=== PATIENT | female | born 1940 | race Caucasian/White ===

== ENCOUNTER 2016-06-18 12:54 | Outpatient (CLI) | payer MEDICARE, OTHER | END 2016-06-18 12:55 | disposition home or self-care (01) | DX: M25.561 Pain in right knee (principal); S83.511A Sprain of anterior cruciate ligament of right knee, initial encounter; M22.41 Chondromalacia patellae, right knee; M21.861 Other specified acquired deformities of right lower leg; M71.21 Synovial cyst of popliteal space [Baker], right knee; M25.461 Effusion, right knee; M23.251 Derangement of posterior horn of lateral meniscus due to old tear or injury, right knee ==

== ENCOUNTER 2016-08-08 13:16 | Outpatient (CLI) | payer MEDICARE, OTHER | END 2016-08-08 13:17 | disposition home or self-care (01) | DX: R19.7 Diarrhea, unspecified (principal) ==

== ENCOUNTER 2019-04-16 10:52 | Outpatient (CLI) | payer MEDICARE, OTHER ==
[2019-04-16] MEDS: BARIUM SULFATE 176 GM BOTTLE PO ONE (12:35)
[2019-04-16] MEDS: BARIUM SULFATE 148 GM POWDER PO ONE (12:36)
[2019-04-16] MEDS: BARIUM SULFATE 700 MG TABLET PO ONE (12:37)
[2019-04-16] MEDS: SIMETHICONE/SOD BICARB/CIT AC 1 EACH PACKET PO ONE (12:38)
--- NOTE | 2019-04-16 15:55 | XRAY Report ---
Reason: DYSPHAGIA Procedure Date: 04/16/2019 Accession Number: [id number] / [id number] Procedure: FL - Esophogram CPT Code: Final Report FULL RESULT: EXAM: BARIUM ESOPHAGRAM EXAM DATE: 04/16/2019 12:17 PM. CLINICAL HISTORY: Dysphagia. COMPARISONS: None. TECHNIQUE: Routine double contrast esophagram. Fluoroscopy Time: 2 minutes and 20 seconds. Number of Images: 27. FINDINGS: Swallowing Mechanism: The swallowing mechanism is initiated normally. The column of barium flows through the esophagus into the stomach without delay. No tracheal aspiration or penetration. Esophageal Motility: Normal peristaltic stripping wave. Mucosa: Mildly prominent cricopharyngeus. No ulcerations or masses. Gastroesophageal Junction: Small hiatal hernia. Moderate spontaneous gastroesophageal reflux. No esophageal stricture or mass lesion. IMPRESSION: 1. Small sliding hiatal hernia and spontaneous gastroesophageal reflux. 2. Mildly prominent cricopharyngeus. 3. No stricture or mass lesion. RADIA
== END 2019-04-16 10:53 | disposition home or self-care (01) ==
LOC: DI 10:52
PROVIDERS: ATTEND Internal Medicine
DX: K21.9 Gastro-esophageal reflux disease without esophagitis (principal); K44.9 Diaphragmatic hernia without obstruction or gangrene; R13.12 Dysphagia, oropharyngeal phase; R13.10 Dysphagia, unspecified
CPT/HCPCS: 74220; A9270

== ENCOUNTER 2019-07-23 15:59 | Outpatient (CLI) | payer MEDICARE, OTHER ==
--- NOTE | 2019-07-24 10:54 | Mammography Report ---
Reason: ROUTINE MAMMO Procedure Date: 07/23/2019 Accession Number: [id number] / [id number] Procedure: FARHANA - Screening Mammo w/Alec CPT Code: Final Report FULL RESULT: EXAM: Screening Mammo w/Alec DATE: 07/23/2019 4:35 PM CLINICAL HISTORY: History of nulliparity. Screening encounter. New baseline screening. TECHNIQUE: (B) - Bilateral CC and MLO views were obtained. COMPARISON: None PARENCHYMAL PATTERN: (D) - The breast(s) demonstrate(s) heterogeneously dense fibroglandular parenchyma. FINDINGS: In the right breast within the breast cone region in the upper central breast are 3 nodules which are isodense, partially obscured and tomographically well circumscribed with suggestion of fatty hilar, potentially lymph nodes. Each of these nodules measures less than 1 cm in short axis and has a ovoid shape. 12:00 approximately 3 cm from the nipple MLO image 29 and cc image 20. 1:00 position 1.8 cm from the nipple MLO image 39 and cc image 27. 1:00 position 4 cm from the nipple MLO image 39 and cc image 32. These 3 nodules should be fully characterized by focused right breast ultrasound. In the left breast best seen on CC projection at the 12:00 position is a architectural distortion CC image 40, possible associated calcification MLO image 42, this should be further characterized with spot magnification views and ultrasound. IMPRESSION: Incomplete examination. BI-RADS category 0. RECOMMENDATION: (ADDMU) - Additional views using both Mammography and Ultrasound recommended. Focused right breast ultrasound and left breast spot magnification views as well as ultrasound. BI-RADS CATEGORY: (0) - Incomplete Examination - need additional evaluation. STANDARD QUALIFYING STATEMENTS: 1. This examination was not reviewed with the aid of Computer-Aided Detection (CAD). 2. A negative or benign imaging report should not preclude biopsy if clinically suspicious findings are present. 3. Dense breasts may obscure an underlying neoplasm. 4. This examination was reviewed with the aid of 3D breast imaging (tomosynthesis).
== END 2019-07-23 16:00 | disposition home or self-care (01) ==
LOC: DI 15:59
PROVIDERS: ATTEND Internal Medicine
DX: Z12.31 Encounter for screening mammogram for malignant neoplasm of breast (principal); R92.8 Other abnormal and inconclusive findings on diagnostic imaging of breast
CPT/HCPCS: 77063; 77067

== ENCOUNTER 2019-08-12 12:56 | Outpatient (CLI) | payer MEDICARE, OTHER ==
--- NOTE | 2019-08-12 14:30 | Mammography Report ---
Reason: ABNORMAL MAMMOGRAM Procedure Date: 08/12/2019 Accession Number: [id number] / [id number] Procedure: FARHANA - Diag Special Views Dig Bilat CPT Code: Final Report FULL RESULT: EXAM: Diag Special Views Dig Bilat DATE: 08/12/2019 1:50 PM CLINICAL HISTORY: Diagnostic examination. The patient is recalled from screening mammography for right breast nodules as well as a left breast architectural distortion. TECHNIQUE: (B) - Bilateral right breast spot CC, right breast spot MLO, right breast ML and left breast spot magnified CC, left ML images are obtained. Bilateral focused breast ultrasound is performed. COMPARISON: 07/23/2019. PARENCHYMAL PATTERN: (D) - The breast(s) demonstrate(s) heterogeneously dense fibroglandular parenchyma. FINDINGS: Right breast: The right breast 12:00 axis nodule essentially unchanged 3 cm from the nipple on ML tomographic image 21. And corresponds to a sonographic wider than tall 0.5 x 0.6 cm hypoechoic finding with lobulated margins and no convincing vascularity by color Doppler, probably benign. In the retroareolar right breast 2 cm from the nipple, 8-9 o'clock axis persists a somewhat wider than tall hypoechoic 0.5 cm nodule which is also probably benign. No sonographic correlate is identified to the mammographically redemonstrated 1:00 axis isodense well-circumscribed nodule 4 cm from the nipple which mammographically is now seen on MLO image 28 and measures up to 0.7 cm, probably benign. There are no suspicious masses, calcifications, or areas of distortion. IMPRESSION: Probably Benign. BI-RADS category 3. RECOMMENDATION: (6MOS) - Recommend 6 month follow-up exam. Bilateral mammography with ultrasound. BI-RADS CATEGORY: (3) - Probably Benign. Left breast: The previously seen architectural distortion partially persists on the left ML image 34 and is redemonstrated on spot views in CC projection, suspicious. Focused left breast ultrasound reveals no convincing corresponding sonographic mass or distortion amenable to biopsy targeting. IMPRESSION: Suspicious findings. BI-RADS category 4. RECOMMENDATION: (BIOPSY) - Stereotactic biopsy with tomography BI-RADS CATEGORY: (4) - Suspicious. STANDARD QUALIFYING STATEMENTS: 1. This examination was not reviewed with the aid of Computer-Aided Detection (CAD). 2. A negative or benign imaging report should not preclude biopsy if clinically suspicious findings are present. 3. Dense breasts may obscure an underlying neoplasm. 4. This examination was reviewed with the aid of 3D breast imaging (tomosynthesis).
== END 2019-08-12 12:57 | disposition home or self-care (01) ==
LOC: DI 12:56
PROVIDERS: ATTEND Internal Medicine
DX: R92.8 Other abnormal and inconclusive findings on diagnostic imaging of breast (principal)
CPT/HCPCS: 76642; 77066

== ENCOUNTER 2019-09-11 14:58 | Outpatient (CLI) | payer MEDICARE, OTHER ==
[~2019-09-11 14:58] MED LIST: BUFFERED LIDOCAINE 10 ML SYRINGE ONE
--- NOTE | 2019-09-11 17:07 | Mammography Report ---
Reason: ABNORMAL MAMMOGRAM Procedure Date: 09/11/2019 Accession Number: [id number] / [id number] Procedure: FARHANA - Stereotactic Core BX LT CPT Code: 28551 Final Report FULL RESULT: EXAM: Stereotactic Core BX LT DATE: 09/11/2019 4:47 PM CLINICAL HISTORY: ABNORMAL MAMMOGRAM COMPARISON: None. CLINICAL DATA: Target architectural distortion measuring approximately 2 cm in the 12 o'clock axis of the left breast. Informed consent was obtained. The patient was positioned in the mammography machine with biopsy attachment. Targeting imaging was obtained in 2-D and 3-D fashion and the lesion was selected. The breast was approached from the cranial aspect. Using standard aseptic technique, 1% buffered lidocaine was injected into the breasts for local anesthesia. A small beronica was made in the skin with a #11 blade. A 9-gauge vacuum-assisted device was advanced into the breasts towards the target and confirmatory imaging was obtained to verify targeting and 16 specimens were obtained. Specimen radiography was performed which demonstrated the presence of calcifications in the sample. A biopsy marker clip was then placed into the biopsy cavity. The biopsy device was subsequently removed from the breast. Hemostasis was achieved. Follow-up 3-D mammography was then performed to verify biopsy targeting and clip placement. The mammography showed concordant clip positioning . The wound was dressed and ice applied. The patient was observed for approximately 15 minutes, then discharged from the diagnostic imaging Department in stable condition following instructions on wound care and obtaining biopsy results. The tissue was sent for histologic analysis. IMPRESSION: Stereotactic biopsy with tomographic targeting of architectural distortion of the left breast. RADIA
[2019-09-11] MEDS ORDERED: BUFFERED LIDOCAINE 10 ML SYRINGE IU ONE (17:11)
== END 2019-09-11 14:59 | disposition home or self-care (01) ==
LOC: DI 14:58
PROVIDERS: ATTEND Internal Medicine
DX: R92.8 Other abnormal and inconclusive findings on diagnostic imaging of breast (principal)
CPT/HCPCS: 19081

== ENCOUNTER 2020-07-31 10:00 | Outpatient (CLI) | payer MEDICARE, OTHER ==
--- NOTE | 2020-08-03 12:40 | Mammography Report ---
BILATERAL DIGITAL SCREENING MAMMOGRAM 3D/2D: 07/31/2020 CLINICAL: Routine screening. Comparison is made to exams dated: 08/12/2019 ultrasound, 08/12/2019 ultrasound, and 07/23/2019 mammogr formerly [facility]. There are scattered fibroglandular elements in both breasts. No significant masses, calcifications, or other findings are seen in either breast. There has been no significant interval change. IMPRESSION: NEGATIVE There is no mammographic evidence of malignancy. A 1 year screening mammogram is recommended. This exam was interpreted at Station ID: [id number]. NOTE: For mammograms, a report in lay terms will be sent to the patient. Approximately 15% of breast malignancies will not be visualized mammographically. In the management of a palpable breast mass, a negative mammogram must not discourage biopsy of a clinically suspicious lesion. Electronically Signed By: Armond Roman M.D., jr/ericarad:07/31/2020 10:56:00 ACR BI-RADS Category 1: Negative 3341F PARENCHYMAL PATTERN: (A) - The breast(s) demonstrate(s) scattered fibroglandular densities. BI-RADS CATEGORY: (1) - 1 RECOMMENDATION: (ANNUAL) - Recommend routine annual screening mammography. [id number] 1 year screening LATERALITY: (B)
== END 2020-07-31 10:01 | disposition home or self-care (01) ==
LOC: DI 10:00
PROVIDERS: ATTEND Internal Medicine
DX: Z12.31 Encounter for screening mammogram for malignant neoplasm of breast (principal)

== ENCOUNTER 2021-05-03 08:00 | Outpatient (CLI) | payer MEDICARE, OTHER | END 2021-05-03 23:59 | LOC: LAB 08:00 | PROVIDERS: ATTEND Internal Medicine | DX: R39.9 Unspecified symptoms and signs involving the genitourinary system (principal) | CPT/HCPCS: 87077; 87086; 87181 ==

== ENCOUNTER 2021-07-29 08:00 | Outpatient (CLI) | payer MEDICARE, OTHER ==
[2021-07-29 16:00] LABS: ALBUMIN 3.9 g/dL (3.2-5.5); ALKALINE PHOSPHATASE 95 IU/L (42-121); ALT ALANINE AMINOTRANSFERASE 26 IU/L (10-60); AST ASPARTATE AMINOTRANSFERASE 28 IU/L (10-42); BILIRUBIN,TOTAL 0.6 mg/dL (0.2-1.0); BUN - BLOOD UREA NITROGEN 24 mg/dL (6-20); CALCIUM 9.6 mg/dL (8.5-10.3); CARBON DIOXIDE - CO2 28 mmol/L (21-32); CHLORIDE 92 mmol/L (101-111); CREATININE 1.3 mg/dL (0.4-1.0); GFR - MDRD 40 (>89); GLUCOSE 96 mg/dL (70-100); POTASSIUM 3.7 mmol/L (3.5-5.0); SODIUM 131 mmol/L (135-145); TOTAL PROTEIN 7.8 g/dL (6.7-8.2)
[2021-07-30 11:45] LABS: BASOPHILS % (AUTO) 0.3 %; EOSINOPHILS # (AUTO) 0.1 10^3/uL (0.0-0.7); EOSINOPHILS % (AUTO) 0.6 %; HCT - HEMATOCRIT 37.4 % (37.0-47.0); LYMPHOCYTES # (AUTO) 3.1 10^3/uL (1.5-3.5); LYMPHOCYTES % (AUTO) 24.3 %; MEAN CORPUSCULAR HEMOGLOBIN 30.4 pg (27.0-31.0); MEAN CORPUSCULAR HGB CONC 32.1 g/dL (32.0-36.0); MEAN CORPUSCULAR VOLUME 94.7 fL (81.0-99.0); MEAN PLATELET VOLUME 9.8 fL (7.9-10.8); MONOCYTES # (AUTO) 0.9 10^3/uL (0.0-1.0); MONOCYTES % (AUTO) 7.2 %; NEUTROPHILS # (AUTO) 8.6 10^3/uL (1.5-6.6); NEUTROPHILS % (AUTO) 67.3 %; PLT - PLATELET COUNT 483 10^3/uL (130-450); RED BLOOD COUNT 3.95 10^6/uL (4.20-5.40); RED CELL DISTRIBUTION WIDTH 13.5 % (12.0-15.0); WHITE BLOOD COUNT 12.8 x10^3/uL (4.8-10.8)
[2021-07-30 12:01] LABS: CHOL/HDL RATIO 4.1 (<4.4); CHOLESTEROL 248 mg/dL; HDL CHOLESTEROL 61 mg/dL; LDL CHOLESTEROL,CALCULATED 159 mg/dL; LDL/HDL RATIO 2.6 (<4.4); TRIGLYCERIDES 139 mg/dL; VLDL CHOLESTEROL 28 mg/dL
[2021-07-30 12:11] LABS: THYROID STIMULATING HORMONE 1.03 uIU/mL (0.34-5.60)
== END 2021-07-29 23:59 ==
LOC: LAB.R 08:00
PROVIDERS: ATTEND Internal Medicine
DX: Z00.00 Encounter for general adult medical examination without abnormal findings (principal); Z79.899 Other long term (current) drug therapy; F41.9 Anxiety disorder, unspecified; K21.9 Gastro-esophageal reflux disease without esophagitis; E78.5 Hyperlipidemia, unspecified; I10 Essential (primary) hypertension; E03.9 Hypothyroidism, unspecified; G47.00 Insomnia, unspecified; G43.909 Migraine, unspecified, not intractable, without status migrainosus; M19.90 Unspecified osteoarthritis, unspecified site; M48.00 Spinal stenosis, site unspecified; Z13.6 Encounter for screening for cardiovascular disorders
CPT/HCPCS: 80053; 80061; 82306; 82607; 83721; 84443; 85025

== ENCOUNTER 2021-08-19 13:26 | Outpatient (CLI) | payer MEDICARE, OTHER ==
[2021-08-19 13:56] LABS: BASOPHILS % (AUTO) 0.5 %; EOSINOPHILS # (AUTO) 0.1 10^3/uL (0.0-0.7); EOSINOPHILS % (AUTO) 0.8 %; HCT - HEMATOCRIT 33.6 % (37.0-47.0); HGB - HEMOGLOBIN 10.6 g/dL (12.0-16.0); LYMPHOCYTES # (AUTO) 2.4 10^3/uL (1.5-3.5); LYMPHOCYTES % (AUTO) 27.9 %; MEAN CORPUSCULAR HEMOGLOBIN 28.9 pg (27.0-31.0); MEAN CORPUSCULAR HGB CONC 31.5 g/dL (32.0-36.0); MEAN CORPUSCULAR VOLUME 91.6 fL (81.0-99.0); MEAN PLATELET VOLUME 8.3 fL (7.9-10.8); MONOCYTES # (AUTO) 0.8 10^3/uL (0.0-1.0); MONOCYTES % (AUTO) 9.3 %; NEUTROPHILS # (AUTO) 5.2 10^3/uL (1.5-6.6); NEUTROPHILS % (AUTO) 61.1 %; PLT - PLATELET COUNT 456 10^3/uL (130-450); RED BLOOD COUNT 3.67 10^6/uL (4.20-5.40); RED CELL DISTRIBUTION WIDTH 13.9 % (12.0-15.0); WHITE BLOOD COUNT 8.5 x10^3/uL (4.8-10.8)
[2021-08-19 14:05] LABS: CALCIUM 8.8 mg/dL (8.5-10.3); CREATININE 1.1 mg/dL (0.4-1.0)
== END 2021-08-19 13:27 | disposition home or self-care (01) ==
LOC: RT 13:26
PROVIDERS: ATTEND Orthopaedic Surgery Orthopaedic Surgery of the Spine
DX: Z01.818 Encounter for other preprocedural examination (principal)
CPT/HCPCS: 36415; 80048; 85025; 93005

== ENCOUNTER 2023-04-13 12:50 | Outpatient (CLI) | payer MEDICARE, OTHER ==
--- NOTE | 2023-04-13 16:56 | Mammography Report ---
BILATERAL DIGITAL SCREENING MAMMOGRAM 3D/2D: 04/13/2023 CLINICAL: Routine screening. Comparison is made to exams dated: 07/31/2020 mammogram, 07/23/2019 mammogram, and 09/11/2019 stereotac tic biopsy - [facility]. There are scattered areas of fibroglandular density in both breasts (category b / 25%-50% glandular t issue). There is a biopsy clip in the left breast. No significant masses, calcifications, or other findings are seen in either breast. There has been no significant interval change. IMPRESSION: NEGATIVE There is no mammographic evidence of malignancy. A 1 year screening mammogram is recommended. *Please note, prior biopsy result reported radial scar, which is a benign, but high-risk lesion. Clin ical followup recommended for discussion regarding continued followup vs. surgical excision. This area of distortion is stable on imaging. Based on the Tyrer Cuzick model (a risk assessment model) the patients lifetime risk is 0.7% and her 10 year risk is 0.0%. According to the ACR, ACS, and NCCN guidelines, an annual breast MRI exam lora g with mammogram is recommended if the patients lifetime risk is 20% or greater. This exam was interpreted at Station ID: [id number]. NOTE: For mammograms, a report in lay terms will be sent to the patient. Approximately 15% of breast malignancies will not be visualized mammographically. In the management of a palpable breast mass, a negative mammogram must not discourage biopsy of a clinically suspicious lesion. Electronically Signed By: Mata Andrade M.D. lc/:04/13/2023 15:33:30 letter sent: No_Letter ACR BI-RADS Category 1: Negative 3341F PARENCHYMAL PATTERN: (A) - The breast(s) demonstrate(s) scattered fibroglandular densities. BI-RADS CATEGORY: (1) - 1 Mammogram [id number] 1 year screening LATERALITY: (B)
== END 2023-04-13 12:51 | disposition home or self-care (01) ==
LOC: DI 12:50
PROVIDERS: ATTEND Internal Medicine
DX: Z12.31 Encounter for screening mammogram for malignant neoplasm of breast (principal); R92.323 Mammographic fibroglandular density, bilateral breasts; L90.5 Scar conditions and fibrosis of skin

== ENCOUNTER 2023-05-18 10:54 | Outpatient (CLI) | payer MEDICARE, OTHER ==
[2023-05-18] MEDS ORDERED: DIATRIZOATE MEGLU/DIATRIZO SOD 30 ML BOTTLE PO ONE ×2 (11:21→13:01)
[2023-05-18 11:31] LABS: CREATININE 1.1 mg/dL (0.6-1.3)
[2023-05-18] MEDS ORDERED: iohexoL-300 100 ML VIAL IVP ONE (13:01)
--- NOTE | 2023-05-18 15:53 | CT Report ---
PROCEDURE: Chest W INDICATIONS: ABDOMINAL PAIN, TACHYCARDIA. Left lower quadrant pain x2 weeks. CONTRAST: 100ml omni 300 TECHNIQUE: After the administration of intravenous contrast, a CT scan of the chest was performed. Images were recorded and evaluated at appropriate window settings. Reformats: axial MIP of the chest, coronal and sagittal. For radiation dose reduction, the following was used: automated exposure control, adjustme nt of mA and/or kV according to patient size. COMPARISON: CT abdomen and pelvis from the same date FINDINGS: Image quality: Excellent. Lungs and pleura: No consolidation. Tree-in-bud nodularity, focally in the left lung base, images 211 and 212 of series 3, consistent with chronic inflammation or infection. . No pleural effusions. No pneumothorax. Pulmonary nodules are as follows (all described on series 3): 1. 3 mm right upper lobe pulmonary nodule, image 68. Mediastinum: Heart size is normal. No pericardial effusion. No large vessel abnormality. No mediastin al adenopathy by size criteria. Chest wall and lower neck: Thyroid is unremarkable. No axillary or supraclavicular adenopathy by size . Bones: No aggressive osseous abnormality. Upper Abdomen: The upper portion of a left staghorn calculus is noted on the chest CT images. Looking at the abdomen and pelvis in its entirety, there is a large staghorn calculus of the left collecting system. There is marked chronic hydronephrosis with thin remnant cortical tissue remaining, as well as lower pole calyceal nonobstructing stones. The left ureter is dilated proximally with a thickened enhancing wall, consistent with chronic ureteritis. IMPRESSION: 1. No acute pulmonary process. 2. 3 mm pulmonary nodule, right upper lobe. 3. Minimal tree-in-bud opacity on the left, consistent with chronic inflammation or infection. 4. Left renal staghorn calculus with obstruction and marked hydronephrosis. The proximal ureter is di lated with a thickened enhancing wall. Findings are highly suspicious for ureteritis an infected, obs tructed collecting system, potentially placing the patient at high risk for urosepsis. Comment: Recommend urgent evaluation for possible obstructed infected left collecting system. Additional Comment: As per the Fleischner Society criteria,If the patient is at low risk for lung can cer, no further follow-up is required. If the patient has risk factors for lung cancer, repeat evalua tion with a low-dose noncontrast chest CT may be obtained in 12 months time. If the nodule is stable at that point, no further follow-up is required. Above discussed with Chelsi Meredith MD at the time of dictation on 05/18/2023 at 1540 hours. Reviewed by: Claudio Yoon MD on 05/18/2023 3:52 PM PST Approved by: Claudio Yoon MD on 05/18/2023 3:52 PM PST Station ID: [id number]
--- NOTE | 2023-05-18 15:58 | CT Report ---
PROCEDURE: Abdomen/Pelvis W INDICATIONS: ABDOMINAL PAIN, TACHYCARDIA CONTRAST: 100ml omni 300 TECHNIQUE: After the administration of intravenous contrast, a CT scan of the abdomen and pelvis was performed. Images were recorded and evaluated at appropriate window settings. Reformats: coronal and sagittal. F or radiation dose reduction, the following was used: automated exposure control, adjustment of mA and /or kV according to patient size. COMPARISON: CT chest from the same date. FINDINGS: Image quality: Excellent. Lung bases and heart: Unremarkable. Liver: No solid mass. Gallbladder and biliary tree: There is either dependent gravel or milk of calcium in the dependent po rtion of the gallbladder. No significant gallbladder wall thickening. Spleen: No splenomegaly. Pancreas: No pancreatic ductal dilation. Adrenals: No adrenal nodule. Kidneys and ureters: There is a left staghorn calculus. There is marked chronic left hydronephrosis w ith significant cortical thinning. Inferior to the staghorn calculus, the proximal left ureter is dil ated with a thickened, enhancing wall. Findings are suspicious for possible ureteritis and obstructed infected collecting system. Bowel and peritoneum: No bowel distension. No pathologic free fluid. Large diffuse fecal load. Lymph nodes: Shotty periaortic lymph nodes, none of which are abnormal by size criteria. Vessels: No infrarenal aortic aneurysm. PELVIS Reproductive organs: Uterus is surgically absent.. Bladder: No abnormal wall thickening, accounting for underdistention. Pelvic lymph nodes: No pelvic adenopathy by size criteria. Bones: No aggressive osseous abnormality. Other: No significant ventral or inguinal hernia. IMPRESSION: 1. Left renal staghorn calculus with obstruction and marked hydronephrosis. The proximal ureter is di lated with a thickened enhancing wall. Findings are highly suspicious for ureteritis an infected, obs tructed collecting system, potentially placing the patient at high risk for urosepsis. 2. Diffuse large fecal load incidentally noted. 3. Question gallbladder gravel. Comment: Recommend urgent evaluation for possible obstructed infected left collecting system. Above discussed with Chelsi Meredith MD at the time of dictation on 05/18/2023 at 1540 hours. Reviewed by: Claudio Yoon MD on 05/18/2023 3:57 PM PST Approved by: Claudio Yoon MD on 05/18/2023 3:57 PM PST Station ID: [id number]
== END 2023-05-18 10:55 | disposition home or self-care (01) ==
LOC: LAB 10:54
PROVIDERS: ATTEND Internal Medicine
DX: R10.9 Unspecified abdominal pain (principal); R00.0 Tachycardia, unspecified; Z79.899 Other long term (current) drug therapy; N13.2 Hydronephrosis with renal and ureteral calculous obstruction; R91.1 Solitary pulmonary nodule; R91.8 Other nonspecific abnormal finding of lung field; R93.89 Abnormal findings on diagnostic imaging of other specified body structures
CPT/HCPCS: 36415; 71260; 74177; 82565; Q9963; Q9967

== ENCOUNTER 2023-05-24 08:00 | Outpatient (CLI) | payer MEDICARE, OTHER | END 2023-05-24 23:59 | disposition home or self-care (01) | LOC: LAB 08:00 | PROVIDERS: ATTEND Urology | DX: N28.82 Megaloureter (principal); N11.8 Other chronic tubulo-interstitial nephritis | CPT/HCPCS: 87086 ==

== ENCOUNTER 2023-07-20 13:34 | Outpatient (CLI) | payer MEDICARE, OTHER ==
[2023-07-20 13:55] LABS: BASOPHILS # (AUTO) 0.1 10^3/uL (0.0-0.1); EOSINOPHILS # (AUTO) 0.5 10^3/uL (0.0-0.7); EOSINOPHILS % (AUTO) 7.5 %; HCT - HEMATOCRIT 35.1 % (37.0-47.0); HGB - HEMOGLOBIN 10.8 g/dL (12.0-16.0); LYMPHOCYTES # (AUTO) 2.4 10^3/uL (1.5-3.5); LYMPHOCYTES % (AUTO) 34.7 %; MEAN CORPUSCULAR HEMOGLOBIN 28.6 pg (27.0-31.0); MEAN CORPUSCULAR HGB CONC 30.8 g/dL (32.0-36.0); MEAN CORPUSCULAR VOLUME 92.9 fL (81.0-99.0); MONOCYTES # (AUTO) 0.7 10^3/uL (0.0-1.0); MONOCYTES % (AUTO) 9.4 %; NEUTROPHILS # (AUTO) 3.3 10^3/uL (1.5-6.6); NEUTROPHILS % (AUTO) 47.3 %; PLT - PLATELET COUNT 391 10^3/uL (130-450); RED BLOOD COUNT 3.78 10^6/uL (4.20-5.40); RED CELL DISTRIBUTION WIDTH 19.4 % (12.0-15.0); WHITE BLOOD COUNT 6.9 x10^3/uL (4.8-10.8)
== END 2023-07-20 13:35 | disposition home or self-care (01) ==
LOC: LAB 13:34
PROVIDERS: ATTEND Nurse Practitioner
DX: D64.9 Anemia, unspecified (principal)
CPT/HCPCS: 36415; 85025

== ENCOUNTER 2023-09-25 14:13 | Outpatient (CLI) | payer MEDICARE, OTHER ==
--- NOTE | 2023-09-25 22:57 | DEXA Report ---
PROCEDURE: Dexa Spine and/or Hip INDICATIONS: POST MENOPAUSAL TECHNIQUE: Dual energy x-ray absorptiometry (DEXA) was performed in the regions detailed below. COMPARISON: None. FINDINGS: Lumbar Spine: Bone Mineral Density 1.0184 g/cm/cm,T score 0.2. Normal Left Femoral Neck: Bone Mineral Density 0.852 g/cm/cm, T score -1.3. Osteopenia Left Total Hip: Bone Mineral Density 0.867 g/cm/cm,T score -1.1. Osteopenia (T score greater or equal to -1.0: NORMAL) (T score from -1.1 to -2.4: OSTEOPENIA) (T score less than or equal to -2.5 to: OSTEOPOROSIS) IMPRESSION: Osteopenia Patients with diagnosis of osteoporosis or osteopenia should have regular bone mineral density assess ment. For those eligible for Medicare, routine testing is allowed once every 2 years. Testing frequ ency can be increased for patients who have rapidly progressing disease or for those who are receivin g medical therapy to restore bone mass. Reviewed by: Obi Bustillos MD on 09/25/2023 9:56 PM NICK Approved by: Obi Bustillos MD on 09/25/2023 9:56 PM NICK Station ID: [id number]
== END 2023-09-25 14:14 | disposition home or self-care (01) ==
LOC: DI 14:13
PROVIDERS: ATTEND Nurse Practitioner
DX: M85.89 Other specified disorders of bone density and structure, multiple sites (principal); Z78.0 Asymptomatic menopausal state